=== PATIENT | male | born 1960 | race Caucasian/White ===

== ENCOUNTER 2017-10-28 09:43 | Observation (INO) ==
[~2017-10-28 09:43] MED LIST: Gelatin Size 100 Topical Foam ONE; Thrombin Topical Soln 5,000 UNIT Vial TOPICAL ONE
[2017-10-28] MEDS ORDERED: Metoprolol Tartrate 25 MG Tablet PO SCH (10:15)
[2017-10-28] MEDS ORDERED: Chlorhexidine Gluconate 2% 1 Pack (2 Cloths) TOPICAL SCH (10:15)
[2017-10-28] MEDS ORDERED: Vancomycin Inj 1 GM/200 ML PIGGYBACK IV.SIG ONE (10:37)
[2017-10-28] MEDS ORDERED: Sodium Chlor 0.9% Inj 500 ML IV.SIG SCH (11:00)
[2017-10-28] MEDS ORDERED: Propofol Inj 500 MG/50 ML Vial ONE (11:32)
[2017-10-28] MEDS ORDERED: ceFAZolin 2 GM Premix Inj 2 GM/50 ML PIGGYBACK IV.SIG ONE (12:25)
[2017-10-28] MEDS ORDERED: *Meperidine Inj 25 MG/ML Vial PERIprocedural Use ONLY ONE (16:34)
[2017-10-28] MEDS ORDERED: Bisacodyl 10 MG Supp RECTAL PRN (16:50)
[2017-10-28] MEDS ORDERED: Naloxone Inj 0.4 MG/ML Vial IV.PUSH PRN (16:50)
[2017-10-28] MEDS ORDERED: Promethazine 25 MG Supp RECTAL PRN (16:50)
[2017-10-28] MEDS ORDERED: Post-op Orders (for Pharmacy) OTHER ONE (16:50)
[2017-10-28] MEDS ORDERED: fentaNYL Citrate Inj 100 MCG/2 ML Ampul ONE (17:09)
[2017-10-28] MEDS ORDERED: Morphine Inj 4 MG/ML Vial ONE (17:09)
--- NOTE | 2017-10-28 17:45 | P.OP ---
- Preoperative Diagnosis (1) Cervical disc prolapse with radiculopathy - Postoperative Diagnosis (1) Cervical disc prolapse with radiculopathy Date of procedure: 10/28/17 Procedure: C5-6 anterior cervical discectomy and arthroplasty using Mobi C, C6-C7 anterior cervical discectomy, interbody arthrodesis using peek cage filled with autologous bone graft C6-C7 instrumented fixation using Simplicity plate and screws Anesthesia: DORI Surgeon: Dave Clarke MD Laundry Washer: Sherry Riggs Pathology: none sent Operation and Findings: INDICATIONS FOR THE PROCEDURE Mr Zamarripa is a 57 year-old male who presented with intractable neck pain and clinical evidence of C6 and C7 cervical radiculopathy. H was found to have a disk protusions at C5-6 and C6-7 causing significant mass effect on the nerve roots. He has failed multiple modalities of nonsurgical treatment including phsycal therapy, analgesics, antiinflammatories, and pain management with mulriple epidural steroid injections. The severity of his pain and symptoms were affecting her quality of life. An anterior cervical discectomy and arthroplasty were indicated. The [id number] details of the surgical procedure, indications, alternatives, risks and potential complications were fully discussed with the patient. The patient fully understood. All his questions were answered. No guarantees were given. He voiced requesting the procedure and signed informed consents. Dr Larson was offered the alternative of delaying the procedure and continuing with nonsurgical management. DETAILS OF THE SURGICAL PROCEDURE SURGICAL APPROACH A skin incision was made along the middle to inferior cervical crease with a # 10 blade. The dissection was carried out through the platysma exposing the sternocleidomastoid muscle. The cervical spine was approached following the fascial layers of the neck, just medial to the anterior border of the sternocleidomastoid and carotid sheath by a combination of sharp and dull dissection. The omohyoid muscle was identified and carefully dissected laterally and the deep cervical fascia was carefully opened. The longus colli muscles were retracted to each side of the midline. A marker was placed at the c5-6 disc space and a cross-table lateral x-ray performed with a C-arm. An AP xray was then obtained as well, and the midline of the disk space was defined. SURGICAL DECOMPRESSION In order to decompress the anterior surface of the spinal cord it was necessary to perform a microsurgical resection of the disk. At this point in the procedure the operating microscope was draped in the usual sterile fashion and brought to the field. The rest of the surgical procedure was performed using microdissection technique with the exception of the closure. Under the operative microscopic a self-retaining retractor was placed underneath the longus colli muscle. The annulus was incised with a #15 blade and microdiscectomy was then carefully carried out using angled curets and pituitary forceps. The patient had a large disk extrusion which was producing mass affect on the exiting nerve root. This was carefully dissected with a nerve hock and resected with a think foot plate 2 mm Kerrison under high magnification. The posterior longitudinal ligament was then elevated with an angled curet and incised with a 15 bladed knife. A careful resection of the posterior longitudinal ligament was carried out using a thin footplate 2 mm Kerrison. Extruded disk fragments causing mechanical compression over the exiting C6 nerve root were carefully dissected. The decompression was then carried out laterally, and a bilateral foraminotomy was performed with a 2 mm thin foot Kerrison. The epidural space was the systematically assessed with a nerve hook in search for disk fragments of scar tissue. An excellent decompression was achieved in both, the dural sac and bilateral exiting nerve roots. The incision was then irrigated with a large amount of antibiotic solution INTERBODY ARTHROPLASTY In order to avoid collapse of the disk space which would result in bilateral foraminal stenosis, and in order to maintain disk space height and function minimally development of adjacent level degeneration, it was necessary to place an interbody device. At this point of the procedure, gentle distraction was applied. The size of the interbody device was then assessed using a trial, and a cross table xray was done for confirmation of appropriate size and position of the device. Then the disk space was irrigated with antibiotic solution, and a 15mm by 6mm Mobi C artificial disk was carefully impacted into the disc space C5-6. An excellent position of the device was achieved. This was confirmed anatomically by feeling the space posterior to the implant and distance to the anterior surface of the dural sac. The position of the device as well as alignment of the spine were assessed anatomically by direct visualization, and radiologically by performing an AP and lateral X-ray of the cervical spine with the C-arm. The position of the implant was excellent. SURGICAL DECOMPRESSION At C6-7 A marker was placed at the disc space C6-7 and a cross-table lateral x-ray performed with a C-arm. . Under the operative microscopic, an anterior osteophytic spur was carefully removed using the leksell, and a self-retaining retractor was placed underneath the longus colli muscle. The annulus was incised with a #15 blade and microdiscectomy was then carefully carried out using angled curets and pituitary forceps. The patient had a posterior osteophytic/disk complex which was producing mass affect on the anterior surface of the dural sac. This was carefully drilled with a TPS drill and ressected with a think foot plate 2mm kerrison under high magnification. The posterior longitudinal ligament was then elevated with an angled curet and incised with a 15 bladed knife. A careful ressection of the posterior longitudinal ligament was carried out using a thin footplate 2 mm Kerrison. The decompression was then carried out laterally, and a bilateral foraminotomy was performed with a 2mm thin foot Kerrison. Then the vertebral bodies above and below the disk space were undercut using a 2 mm thin foot Kerrison. The epidural space was the systematically assessed with a nerve hook in search for disk fragments of scarr tissue. An excellent decompression was achieved in both , the dural sac and bilateral exiting nerve roots. The incision was then irrigated with a large amount of antibiotic solution INTERBODY ARTHRODHESIS AT C6-7 In order to avoid collapse of the disk space which would result in bilateral foraminal stenosis, and to increase the chances of a successful fusion, it was necessary to place an interbody cage filled with autologous bone. At this point of the procedure, the superior and inferior endplates were then evenly decorticated with a TPS drill. The use of a drill in combination with a curette allowed me to systematically remove the cartilaginous endplates, exposing healthy bone for the interbody arthrodesis. fourteen millimeters distraction pins were then placed at the vertebral bodies adjacent to the disk space, and gentle distraction was applied. The size of the interbody cage was then assessed using different size spacers, and a rasp was used to ensure no residual cartilage. A PEEK cage of the appropriate size was selected, and the interbody arthrodesis was then preformed by carefully impacting a PEEK cage filled with autologous bone graft to the disc space C6-7. An excellent position of the cage was achieved. This was was confirmed anatomically by feelling the space posterior to the implant and distance to the anterior surface of the dural sac. Radiological confirmation of the position was performed with a cross lateral xray performed with the C-arm. INTERNAL INSTRUMENTAL FIXATION AT C6-7 Once that the interbody device was in an appropriate position, it was necessary to stabilize the spine with anterior instrumentation. Anterior instrumentation has demonstrated to increase the rate of fusion, accelerate the patient's recovery, and decrease the rate of failed interbody grafts. At this point of the procedure, the distance between the vertebral bodies was carefully measures, and a Simplicity plate was brought to the field and presented in front of the C6 and 7 vertebral bodies. Shot Packer holes were then drilled using the TPS drill, and the plate was then secured to the spine using self-drilling, self-tapping screws. Initially, the inferior right screw was inserted, followed by placement of the contralateral upper screw. The remaining screws were sequentially placed in a contra-lateral fashion. A proper purchase was achieved with all screws and the position of the cage, plate and screws, and alignment of the spine was assessed anatomically by direct visualization, and radiologically by performing a cross lateral Xray of the cervical spine with the C-arm. CLOSURE The incision was irrigated with several liters of antibiotic solution. Hemostasis was achieved with a bipolar. The screws were locked to prevent backing out. A 7 mm Cody-Marroquin drain was left in the prevertebral space and externalized through a separate stab incision. The incision was then closed in layers. 3-0 Vicryl with interrupted sutures was used to close the platysma and subcutaneous tissue. The skin was closed with 4-0 running subcuticular Vicryl and Dermabond was applied. The drain was secured with a 3-0 nylon. At the end of the procedure the sponge, needle and instrument counts were all correct. The estimated blood loss was less than 80-100 cc. No blood transfusion was given. No intraoperative complications occurred. The patient received prophylactic antibiotics. The patient was then extubated and transferred to the recovery room in stable condition. on.
[2017-10-28] MEDS ORDERED: Glycopyrrolate Inj 1 MG/5 ML Syringe IV.PUSH ONE (18:55)
[2017-10-28] MEDS ORDERED: Lidocaine PF 1% Inj 5 ML Syringe INFILTRATN ONE (18:55)
[2017-10-28] MEDS ORDERED: Neostigmine Inj 5 MG/5 ML Syringe IV.PUSH ONE (18:55)
[2017-10-28] MEDS ORDERED: Phenylephrine/NS 1000 MCG/10ML Syringe IV.PUSH ONE (18:55)
--- NOTE | 2017-10-28 21:07 | XR ---
EXAM DATE: 10/28/2017 8:50 PM EDT AGE/SEX: 57 years / Male INDICATIONS: C5-6, C6-7 Anterior cervical disc fusion. CLINICAL DATA: This is the patient's initial encounter. Patient reports that signs and symptoms have been present for 1 day and indicates a pain score of Nonresponsive. MEDICAL/SURGICAL HISTORY: Non-responsive. Non-responsive. COMPARISON: No prior exams available for comparison. FINDINGS: There is a prosthetic disc at the C5-C6 level. There is an anterior cervical fusion plate at the C6-C 7 level. There does appear to be a drain in place. CONCLUSION: Good placement of surgical hardware. Electronically signed by: Torrey Cain MD 10/28/2017 9:05 PM EDT
[2017-10-29] MEDS: Senna/Docusate Sodium 8.6/50 MG Tablet PO SCH ×2 (08:42→09:02)
--- NOTE | 2017-10-29 18:28 | P.DS ---
Date of admission: 10/28/17 17:33 Primary care physician: Dr Mauro Monet Brief History from admission: Mr Zamarripa is a 57 year-old male who presented with intractable neck pain and clinical evidence of C6 and C7 cervical radiculopathy. H was found to have a disk protusions at C5-6 and C6-7 causing significant mass effect on the nerve roots. He has failed multiple modalities of nonsurgical treatment including physical therapy, analgesics, antiinflammatories, and pain management with multiple epidural steroid injections. The severity of his pain and symptoms were affecting her quality of life. An anterior cervical discectomy and arthroplasty were indicated. DS: Medications - Discharge Medications Prescriptions: hydrocodone-acetaminophen [Verdrocet] 1 tab PO Q4-6H PRN 3 Days #15 tab PRN Reason: Pain DS: Summary Hospital Course: Mr. Zamarripa underwent a C5-6 anterior cervical discectomy and arthroplasty using Mobi C, C6-C7 anterior cervical discectomy, interbody arthrodesis using peek cage filled with autologous bone graft C6-C7 instrumented fixation using Simplicity plate and screws on 10/28/17. His surgery went well without complications. He is discharged home in stable conditions. - Time Spent with Patient Total time spent providing and/or coordinating discharge services: - Quality: VTE Deep Vein Thrombosis/Pulmonary Embolism Present on Admission: No Exam Vital signs: Vital Signs 10/28/17 20:00 10/29/17 00:00 10/29/17 04:00 Temperature 98.3 F 97.8 F 98.2 F Pulse Rate 79 84 81 Respiratory Rate 18 18 18 Blood Pressure 147/81 H 136/79 121/70 Pulse Oximetry 98 96 97 10/29/17 08:00 10/29/17 12:00 10/29/17 16:00 Temperature 98.4 F 97.8 F 98.3 F Pulse Rate 70 62 66 Respiratory Rate 18 18 16 Blood Pressure 119/76 135/71 136/77 Pulse Oximetry 100 100 100 Intake & Output 10/28/17 10/29/17 10/29/17 18:59 06:59 18:59 Intake Total 1800 / 1800 900 / 900 850 / 850 Output Total 410 / 410 2050 / 2050 Balance 1390 / 1390 -1150 / -1150 850 / 850 Weight 84.8 kg Intake: IV 1000 / 1000 LR 1000 mL Inj 1,000 ML @ 30 1000 / 1000 mls/hr IV.SIG .Q24H [facility] Rx#: [id number] Oral 900 / 900 850 / 850 Anesthesia Amount 800 / 800 Output: Urine 1300 / 1300 Estimated Blood Loss 100 / 100 Urine Amount (Catheter) 300 / 300 750 / 750 Indwelling Urethral Catheter 300 / 300 750 / 750 Wound Drainage # 1 Anterior Neck CAIN Drain Other: # Voids 2 Weight On Admission 84.8 kg Results Procedures completed during hospitalization: C5-6 anterior cervical discectomy and arthroplasty using Mobi C, C6-C7 anterior cervical discectomy, interbody arthrodesis using peek cage filled with autologous bone graft C6-C7 instrumented fixation using Simplicity plate and screws - Impressions ITS Impressions Cervical Spine X-Ray 10/28/17 00:00 CONCLUSION: Good placement of surgical hardware. Discharge Plan - Discharge Disposition Patient Disposition: Discharge Home - Discharge Condition Condition: Good - Discharge Order Discharge Orders: Discharge Order (Routine); Ordered 10/29/17 Ordered By: Amanda Saab - Physicians Team Attending Provider: Dave Clarke - Rxs /Orders / Referrals /Forms Prescriptions: New hydrocodone-acetaminophen [Verdrocet] 2.5-325 mg Tablet 1 tab PO Q4-6H PRN (Reason: Pain) 3 Days Qty: 15 RF: 0 Continue aspirin [Aspirin Low Dose] 81 mg Tablet,Delayed Release (Dr/Ec) 81 mg PO DAILY atorvastatin 10 mg Tablet 10 mg PO DAILY clobetasol 0.05 % Solution 1 applic TOPICAL QAM AND QPM eletriptan [Relpax] 40 mg Tablet 40 mg PO Q2-4H PRN (Reason: Migraine Headache) rabeprazole 20 mg Tablet,Delayed Release (Dr/Ec) 20 mg PO DAILY ranitidine HCl 150 mg Tablet 150 mg PO DAILY PRN (Reason: Gastric Reflux) salicylic acid 6 % Shampoo 1 applic TOPICAL DAILY tadalafil [Cialis] 10 mg Tablet 10 mg PO DAILY PRN (Reason: Erectile Dysfunction) Referrals: Dr Mauro Monet MD [Other] - See Instructions - Discharge Instructions Patient Printed Instructions: Laminectomy (DC)
== END 2017-10-29 18:56 | disposition home or self-care (01) ==
LOC: N06 09:43 → HSDC 09:43 → HSDI 09:43 → N06 17:40
PROVIDERS: ADMIT Neurological Surgery; ATTEND Neurological Surgery